=== PATIENT | female | born 1955 | race Caucasian/White ===

== ENCOUNTER 2017-08-27 09:31 | Outpatient (CLI) | payer BC | END 2017-08-27 09:32 | disposition home or self-care (01) | LOC: BICMAMMO 09:31 | PROVIDERS: ATTEND Internal Medicine Hematology & Oncology | DX: Z13.820 Encounter for screening for osteoporosis (principal); Z85.3 Personal history of malignant neoplasm of breast; Z80.3 Family history of malignant neoplasm of breast; L90.5 Scar conditions and fibrosis of skin; R92.1 Mammographic calcification found on diagnostic imaging of breast; Z80.8 Family history of malignant neoplasm of other organs or systems | CPT/HCPCS: G0279 ==

== ENCOUNTER 2017-08-27 09:41 | Outpatient (CLI) | payer BC | END 2017-08-27 09:42 | disposition home or self-care (01) | LOC: BICMAMMO 09:41 | PROVIDERS: ATTEND Internal Medicine Hematology & Oncology | DX: Z78.0 Asymptomatic menopausal state (principal) | CPT/HCPCS: 77080 ==

== ENCOUNTER 2018-02-19 13:53 | Outpatient (CLI) | payer BC | END 2018-02-19 13:54 | disposition home or self-care (01) | LOC: BICMAMMO 13:53 | PROVIDERS: ATTEND Internal Medicine Hematology & Oncology | DX: Z08 Encounter for follow-up examination after completed treatment for malignant neoplasm (principal); Z85.3 Personal history of malignant neoplasm of breast; Z80.3 Family history of malignant neoplasm of breast | CPT/HCPCS: 77066; G0279 ==

== ENCOUNTER 2019-02-23 09:59 | Outpatient (CLI) | payer BC ==
--- NOTE | 2019-02-23 10:46 | MMO ---
Bilateral MAMMO Bilat Diag [facility]. CLINICAL HISTORY: Patient is 64 years old and is seen for diagnostic exam. The patient has a history of lumpectomy procedure revealed invasive poorly differntiated carcinoma. in the right breast in February,; Core biopsy procedure revealed invasive ductal right breast carcinoma in January, and malignant (generic) in the right breast at age 61. VIEWS: The views performed were: bilateral craniocaudal with tomosynthesis; bilateral mediolateral oblique with tomosynthesis; and bilateral mediolateral with tomosynthesis. FILMS COMPARED: The present examination has been compared to prior imaging studies performed at [facility] on 02/08/2016, 02/18/2017, 08/27/2017 and 02/19/2018. This study has been interpreted with the assistance of computer-aided detection. MAMMOGRAM FINDINGS: The breasts are heterogeneously dense, which could obscure a lesion on mammography. There are stable benign appearing calcifications seen in both breasts. There are also vascular calcifications. There are no suspicious masses, suspicious calcifications, or new areas of architectural distortion. IMPRESSION: THERE IS NO MAMMOGRAPHIC EVIDENCE OF MALIGNANCY. A ROUTINE FOLLOW-UP MAMMOGRAM IN 1 YEAR IS RECOMMENDED. THE RESULTS OF THIS EXAM WERE SENT TO THE PATIENT. ACR BI-RADS Category 2 - Benign finding MAMMOGRAPHY NOTE: 1. A negative mammogram report should not delay a biopsy if a dominant of clinically suspicious mass is present. 2. Approximately 10% to 15% of breast cancers are not detected by mammography. 3. Adenosis and dense breasts may obscure an underlying neoplasm. Reported by: JULITA LUNA MD Electonically Signed: [id number]
== END 2019-02-23 10:00 | disposition home or self-care (01) ==
LOC: BICMAMMO 09:59
PROVIDERS: ATTEND Internal Medicine Hematology & Oncology
DX: C50.511 Malignant neoplasm of lower-outer quadrant of right female breast (principal)
CPT/HCPCS: 77066; G0279

== ENCOUNTER 2019-04-14 08:04 | Outpatient (CLI) | payer BC ==
--- NOTE | 2019-04-14 09:53 | BD ---
DEXA BONE MINERAL DENSITY STUDY: HISTORY: Osteoporosis screening. Age-related osteoporosis with a current pathologic fractured vertebra. COMPARISON: None. FINDINGS: LUMBAR SPINE BMD (g/cm2) T-SCORE Z-SCORE L1 1.288 2.7 4.1 L2 1.319 2.6 4.2 L3 1.357 2.5 4.1 L4 1.266 1.9 3.5 TOTAL 1.309 2.4 4.0 FEMORAL NECK 0.861 0.1 1.5 TOTAL LEFT HIP 0.951 0.1 1.1 WHO CLASSIFICATION: Normal. IMPRESSION: Normal bone mineral density. POS: [facility]
== END 2019-04-14 08:05 | disposition home or self-care (01) ==
LOC: BICMAMMO 08:04
PROVIDERS: ATTEND Internal Medicine Hematology & Oncology
DX: M80.08XA Age-related osteoporosis with current pathological fracture, vertebra(e), initial encounter for fracture (principal); C50.511 Malignant neoplasm of lower-outer quadrant of right female breast; Z78.0 Asymptomatic menopausal state
CPT/HCPCS: 77080

== ENCOUNTER 2020-02-29 09:12 | Outpatient (CLI) | payer BC ==
--- NOTE | 2020-02-29 09:55 | MMO ---
Bilateral MAMMO Bilat Diag [facility]. CLINICAL HISTORY: Patient is 65 years old and is seen for diagnostic exam. The patient has no family history of breast cancer. The patient has a history of lumpectomy procedure revealed invasive poorly differntiated carcinoma. in the right breast in February,; Core biopsy procedure revealed invasive ductal right breast carcinoma in January, and malignant (generic) in the right breast at age 61. The patient has a history of right Lumpectomy in February, - malignant. VIEWS: The views performed were: bilateral craniocaudal with tomosynthesis; bilateral mediolateral oblique with tomosynthesis; and bilateral mediolateral with tomosynthesis. FILMS COMPARED: The present examination has been compared to prior imaging studies performed at [facility] on 02/18/2017, 08/27/2017, 02/19/2018 and 02/23/2019. This study has been interpreted with the assistance of computer-aided detection. MAMMOGRAM FINDINGS: The breasts are heterogeneously dense, which could obscure a lesion on mammography. There are stable benign appearing calcifications seen in both breasts. There are also vascular calcifications. There are no suspicious masses, suspicious calcifications, or new areas of architectural distortion. IMPRESSION: THERE IS NO MAMMOGRAPHIC EVIDENCE OF MALIGNANCY. A ROUTINE FOLLOW-UP MAMMOGRAM IN 1 YEAR IS RECOMMENDED. THE RESULTS OF THIS EXAM WERE SENT TO THE PATIENT. ACR BI-RADS Category 2 - Benign finding MAMMOGRAPHY NOTE: 1. A negative mammogram report should not delay a biopsy if a dominant of clinically suspicious mass is present. 2. Approximately 10% to 15% of breast cancers are not detected by mammography. 3. Adenosis and dense breasts may obscure an underlying neoplasm. Reported by: JULITA LUNA MD Electonically Signed: [id number]
== END 2020-02-29 09:13 | disposition home or self-care (01) ==
LOC: BICMAMMO 09:12
PROVIDERS: ATTEND Internal Medicine Hematology & Oncology
DX: Z08 Encounter for follow-up examination after completed treatment for malignant neoplasm (principal); Z85.3 Personal history of malignant neoplasm of breast
CPT/HCPCS: 77066; G0279

== ENCOUNTER 2021-03-06 09:10 | Outpatient (CLI) | payer BC | END 2021-03-06 09:11 | disposition home or self-care (01) | LOC: BICMAMMO 09:10 | PROVIDERS: ATTEND Internal Medicine Hematology & Oncology | DX: Z08 Encounter for follow-up examination after completed treatment for malignant neoplasm (principal); Z85.3 Personal history of malignant neoplasm of breast; Z80.3 Family history of malignant neoplasm of breast | CPT/HCPCS: 77066; G0279 ==

== ENCOUNTER 2021-08-07 09:26 | Outpatient (CLI) | payer BC | END 2021-08-07 09:27 | disposition home or self-care (01) | LOC: BICRAD 09:26 | PROVIDERS: ATTEND Internal Medicine Hematology & Oncology | DX: Z13.820 Encounter for screening for osteoporosis (principal); M25.551 Pain in right hip; Z78.0 Asymptomatic menopausal state | CPT/HCPCS: 77080 ==

== ENCOUNTER 2022-03-26 10:38 | Outpatient (CLI) | payer MEDICARE | END 2022-03-26 10:39 | disposition home or self-care (01) | LOC: BICMAMMO 10:38 | PROVIDERS: ATTEND Internal Medicine Hematology & Oncology | DX: Z12.31 Encounter for screening mammogram for malignant neoplasm of breast (principal); Z80.3 Family history of malignant neoplasm of breast; Z85.3 Personal history of malignant neoplasm of breast; Z98.890 Other specified postprocedural states | CPT/HCPCS: 77063; 77067 ==

== ENCOUNTER 2023-05-01 10:33 | Outpatient (CLI) | payer MEDICARE | END 2023-05-01 10:34 | disposition home or self-care (01) | LOC: BICMAMMO 10:33 | PROVIDERS: ATTEND Obstetrics & Gynecology | DX: Z12.31 Encounter for screening mammogram for malignant neoplasm of breast (principal); Z80.3 Family history of malignant neoplasm of breast; Z85.3 Personal history of malignant neoplasm of breast; Z98.890 Other specified postprocedural states | CPT/HCPCS: 77063; 77067 ==

== ENCOUNTER 2023-08-12 10:16 | Outpatient (CLI) | payer MEDICARE | END 2023-08-12 10:17 | disposition home or self-care (01) | LOC: BICMAMMO 10:16 | PROVIDERS: ATTEND Obstetrics & Gynecology | DX: Z13.820 Encounter for screening for osteoporosis (principal); N95.1 Menopausal and female climacteric states | CPT/HCPCS: 77080 ==

== ENCOUNTER 2024-05-04 12:30 | Outpatient (CLI) | payer MEDICARE | END 2024-05-04 12:31 | disposition home or self-care (01) | LOC: BICMAMMO 12:30 | PROVIDERS: ATTEND Internal Medicine Hematology & Oncology | DX: Z12.31 Encounter for screening mammogram for malignant neoplasm of breast (principal); Z80.3 Family history of malignant neoplasm of breast; Z86.000 Personal history of in-situ neoplasm of breast; Z98.890 Other specified postprocedural states | CPT/HCPCS: 77063; 77067 ==